=== PATIENT | male | born 1945 | race African-American/Black ===

== ENCOUNTER 2018-04-25 05:24 | Emergency (ER) | payer MEDICARE ==
[~2018-04-25] VITALS: Ht 185.4 cm; Wt 140.9 kg
[2018-04-25] MEDS ORDERED: EPINEPHrine 1:10,000 [1 MG/10 ML] SYRINGE IVP ONE (05:26)
[2018-04-25 05:30] VITALS: BP 0/0
== END 2018-04-25 08:09 | disposition expired ==
LOC: EMS 05:25 → EDBD 05:25 → EMS 08:09
DX: I46.9 Cardiac arrest, cause unspecified (principal)
CPT/HCPCS: 99285; J0171